=== PATIENT | female | born 1980 ===

== ENCOUNTER 2021-01-26 15:38 | Outpatient (CLI) | payer OTHER | END 2021-01-26 16:22 | disposition home or self-care (01) | LOC: OFIC 805 15:38 | PROVIDERS: ATTEND Otolaryngology Otology & Neurotology | DX: R13.19 Other dysphagia (principal); J35.1 Hypertrophy of tonsils ==

== ENCOUNTER 2021-03-09 13:23 | Outpatient (CLI) | payer OTHER | END 2021-03-09 14:08 | disposition home or self-care (01) | LOC: OFIC 805 13:23 | PROVIDERS: ATTEND Otolaryngology Otology & Neurotology | DX: R13.19 Other dysphagia (principal); J35.1 Hypertrophy of tonsils ==